=== PATIENT | female | born 1965 | race Caucasian/White ===

== ENCOUNTER → 2017-01-19 | Outpatient (CLI) | payer BC ==
[~2017-01-19] MED LIST: B & O SUPPRETTE1 SUP RC; CIPRO 250MG TA250 MG PO; COLACE 100100 MG/CAP PO; DESYREL 50MG50 MG PO; IBU600 MG PO; PERCOCET 325 MG1 TA2 PO
== END ==
LOC: MC.RAD 14:27
DX: Z12.31 Encounter for screening mammogram for malignant neoplasm of breast (principal)

== ENCOUNTER → 2018-03-25 | Outpatient (CLI) | payer BC | LOC: MC.RAD 07:00 | DX: Z12.31 Encounter for screening mammogram for malignant neoplasm of breast (principal) ==

== ENCOUNTER → 2019-04-24 | Outpatient (CLI) | payer BC | LOC: MC.RAD 07:56 | DX: Z12.31 Encounter for screening mammogram for malignant neoplasm of breast (principal) ==

== ENCOUNTER → 2020-04-27 | Outpatient (CLI) | payer BC | LOC: MC.RAD 07:30 | DX: Z12.31 Encounter for screening mammogram for malignant neoplasm of breast (principal) ==

== ENCOUNTER → 2021-04-29 | Outpatient (CLI) | payer BC | LOC: MC.RAD 07:27 | DX: Z12.31 Encounter for screening mammogram for malignant neoplasm of breast (principal) ==